=== PATIENT | female | born 1940 | race Hispanic/Latino ===

== ENCOUNTER 2021-12-26 08:50 | Inpatient (IN) | payer MEDICARE ==
[~2021-12-26] VITALS: Ht 162.6 cm; Wt 108.4 kg
[~2021-12-26 08:50] MED LIST: ASPIRIN81 M1 PO; CEPHALEXIN500 M1 PO; GABAPENTIN300 MG PO; LASIX20 MG PO; LISINOPRIL2.5 MG PO; METFORMIN HCL500 MG PO; NITROGLYCERIN0.4 MG; ULTRAM50 MG PO
[2021-12-26] MEDS ORDERED: ONDANSETRON HCL INJ 2MG/ML 2ML 2 MG/ML VIAL IV STA (09:23)
[2021-12-26] MEDS ORDERED: SODIUM CHLORIDE 0.9% 500ML 500 ML IV ONE (09:30)
[2021-12-26 09:51] LABS: BASOPHILS % 0.2 % (0.0-1.0); EOSINOPHILS % 0.1 % (0.0-6.0); HEMOGLOBIN 13.9 g/dL (12.0-16.0); LYMPHOCYTES # (AUTO) 2.1 (1.0-3.2); LYMPHOCYTES % 17.7 % (18.0-39.1); MEAN CORPUSCULAR HEMOGLOBIN 30.1 pg (28-32); MEAN CORPUSCULAR HGB CONC 32.3 g/dL (31-35); MEAN CORPUSCULAR VOLUME 93.1 fL (81-99); MONOCYTES # (AUTO) 0.5 (0.2-0.8); NEUTROPHILS # (AUTO) 9.2 (2.1-6.9); NEUTROPHILS % 77.8 % (38.7-80.0); PLATELET COUNT 214 x10e3/uL (140-360); RED BLOOD COUNT 4.62 x10e6/uL (3.6-5.1); RED CELL DISTRIBUTION WIDTH 13.3 % (11.7-14.4)
[2021-12-26 10:11] LABS: ALBUMIN 3.6 g/dL (3.5-5.0); ALBUMIN/GLOBULIN RATIO 0.9 (0.8-2.0); ANION GAP 15.3 mmol/L (8-16); CALCIUM 8.7 mg/dL (8.4-10.2); MAGNESIUM 1.8 MG/DL (1.3-2.1); POTASSIUM 4.3 mmol/L (3.5-5.1)
[2021-12-26 10:18] LABS: CREATINE KINASE MB 0.9 ng/mL (0-5.0)
[2021-12-26 10:20] LABS: INR 1.08
[2021-12-26 10:21] LABS: PARTIAL THROMBOPLASTIN TIME 28.6 seconds (23.8-35.5)
[2021-12-26 10:53] LABS: CLARITY,URINE CLEAR (CLEAR); COLOR,URINE YELLOW (YELLOW); KETONES,URINE NEGATIVE (NEGATIVE); LEUKOCYTE ESTERASE ,URINE NEGATIVE (NEGATIVE); NITRITE,URINE NEGATIVE (NEGATIVE); PROTEIN,URINE DIPSTICK NEGATIVE (NEGATIVE); URINE UROBILINOGEN 0.2 mg/dL (0.2 - 1)
[2021-12-26] MEDS ORDERED: IOPAMIDOL 370 MG/ML 100 ML INFUS..BTL INJ ONE (11:05)
[2021-12-26 11:22] LABS: BACTERIA,URINE FEW /HPF; EPITHELIAL CELLS,URINE MODERATE /LPF; RBC,URINE 0-5 /HPF (0-5)
[2021-12-26] MEDS ORDERED: DEXTROSE 50% SYRINGE 50 ML IV PRN (11:45)
[2021-12-26] MEDS ORDERED: ONDANSETRON HCL INJ 2MG/ML 2ML 2 MG/ML VIAL IV PRN (11:45)
[2021-12-26] MEDS ORDERED: Morphine 2mg Syringe 2 MG/ML SYR IV PRN (11:45)
[2021-12-26] MEDS: SODIUM CHLORIDE 0.9% 1000ML 1,000 ML IV SCH ×2 (11:59→21:36)
[2021-12-26] MEDS: METRONIDAZOLE 500MG/NS 100ML 100 ML IV SCH ×3 (11:59→23:41)
[2021-12-26 12:30] VITALS: BP 127/71
[2021-12-26] MEDS ORDERED: TIZANIDINE HCL4 MG PO (13:40)
[2021-12-26] MEDS ORDERED: CYMBALTA30 MG PO (13:40)
[2021-12-26] MEDS ORDERED: FAMOTIDINE20 MG PO (13:40)
[2021-12-26] MEDS ORDERED: SIMVASTATIN20 MG PO (13:40)
[2021-12-26] MEDS ORDERED: FLUOCINONIDE-E15 GM TOP (13:40)
[2021-12-26] MEDS ORDERED: CLOPIDOGREL75 MG PO (13:40)
[2021-12-26 13:43] VITALS: BP 127/71
[2021-12-26 16:10] VITALS: BP 102/47
[2021-12-26] MEDS: INSULIN LISPRO 100 UNIT/1 ML 3ML VIAL SQ SCH ×2 (16:30→21:00)
[2021-12-26] MEDS ORDERED: TRAMADOL HCL 50 MG TAB PO PRN (17:00)
[2021-12-26] MEDS: LEVOFLOXACIN 500 MG TAB PO SCH (17:44)
[2021-12-26] MEDS: FAMOTIDINE 20 MG TAB PO SCH (17:44)
[2021-12-26] MEDS: ENOXAPARIN SOD INJ 40 MG/0.4 ML SYR SC SCH (17:45)
[2021-12-26 18:27] LABS: CREATINE KINASE MB 0.8 ng/mL (0-5.0)
[2021-12-26 20:00] VITALS: BP 96/55
[2021-12-26 21:00] VITALS: BP 96/55
[2021-12-26] MEDS: SIMVASTATIN 20 MG TAB PO SCH (21:37)
[2021-12-27] VITALS (8 sets, daily range): BP systolic 102–123; BP diastolic 56–76
[2021-12-27 04:50] LABS: BASOPHILS % 0.4 % (0.0-1.0); EOSINOPHILS # (AUTO) 0.1 (0.0-0.4); EOSINOPHILS % 0.7 % (0.0-6.0); HEMATOCRIT 38.4 % (34.2-44.1); HEMOGLOBIN 12.3 g/dL (12.0-16.0); LYMPHOCYTES # (AUTO) 2.3 (1.0-3.2); LYMPHOCYTES % 27.7 % (18.0-39.1); MEAN CORPUSCULAR HEMOGLOBIN 30.2 pg (28-32); MEAN CORPUSCULAR VOLUME 94.3 fL (81-99); MONOCYTES # (AUTO) 0.5 (0.2-0.8); MONOCYTES % 6.5 % (4.4-11.3); NEUTROPHILS # (AUTO) 5.4 (2.1-6.9); NEUTROPHILS % 64.5 % (38.7-80.0); PLATELET COUNT 173 x10e3/uL (140-360); RED BLOOD COUNT 4.07 x10e6/uL (3.6-5.1); RED CELL DISTRIBUTION WIDTH 13.4 % (11.7-14.4)
[2021-12-27 05:09] LABS: ALBUMIN 2.9 g/dL (3.5-5.0); ALBUMIN/GLOBULIN RATIO 0.9 (0.8-2.0); CALCIUM 7.9 mg/dL (8.4-10.2); CREATININE, SERUM 0.82 mg/dL (0.57-1.11)
[2021-12-27] MEDS: METRONIDAZOLE 500MG/NS 100ML 100 ML IV SCH ×3 (05:47→18:00)
[2021-12-27 06:01] LABS: CREATINE KINASE 127 IU/L (29-168)
[2021-12-27] MEDS: INSULIN LISPRO 100 UNIT/1 ML 3ML VIAL SQ SCH ×4 (07:30→20:36)
[2021-12-27] MEDS: LISINOPRIL 2.5 MG TAB PO SCH (08:59)
[2021-12-27] MEDS: FAMOTIDINE 20 MG TAB PO SCH ×2 (08:59→16:46)
[2021-12-27] MEDS ORDERED: DULOXETINE HCL 30 MG DELAYED RELEASE PO SCH (09:00)
[2021-12-27] MEDS: SODIUM CHLORIDE 0.9% 1000ML 1,000 ML IV SCH ×2 (10:30→17:45)
[2021-12-27] MEDS ORDERED: PHE/SHARK LIVER OIL/COCOA BUT 24 EA SUPP RC PRN (12:15)
[2021-12-27] MEDS ORDERED: SIMETHICONE 80 MG CHEW PO PRN (12:15)
[2021-12-27] MEDS: ENOXAPARIN SOD INJ 40 MG/0.4 ML SYR SC SCH (16:46)
[2021-12-27] MEDS: LEVOFLOXACIN 500 MG TAB PO SCH (16:46)
[2021-12-27] MEDS: SIMVASTATIN 20 MG TAB PO SCH (20:36)
[2021-12-28 00:12] VITALS: BP 111/71
[2021-12-28] MEDS: METRONIDAZOLE 500MG/NS 100ML 100 ML IV SCH ×2 (00:28→05:44)
[2021-12-28] MEDS: SODIUM CHLORIDE 0.9% 1000ML 1,000 ML IV SCH (03:49)
[2021-12-28 04:00] VITALS: BP 102/52
[2021-12-28] MEDS: INSULIN LISPRO 100 UNIT/1 ML 3ML VIAL SQ SCH (07:30)
[2021-12-28 08:25] VITALS: BP 110/70
[2021-12-28 09:00] VITALS: BP 110/70
[2021-12-28] MEDS: LISINOPRIL 2.5 MG TAB PO SCH (09:23)
[2021-12-28] MEDS: FAMOTIDINE 20 MG TAB PO SCH (09:23)
[2021-12-28] MEDS ORDERED: LEVOFLOXACIN500 MG PO (11:00)
[2021-12-28] MEDS ORDERED: FLAGYL375 MG PO (11:02)
[2021-12-28 11:58] VITALS: BP 146/80
[2021-12-28] MEDS ORDERED: DULOXETINE HCL 30 MG DELAYED RELEASE PO SCH (21:00)
== END 2021-12-28 11:54 | disposition home or self-care (01) | DRG 312 ==
LOC: ER 09:05 → ERHOLD 11:46 → MED/SURG3 12:30
PROVIDERS: ADMIT Internal Medicine; ATTEND Internal Medicine
DX: R55 Syncope and collapse (principal); Z68.41 Body mass index [BMI] 40.0-44.9, adult; K52.9 Noninfective gastroenteritis and colitis, unspecified; E11.9 Type 2 diabetes mellitus without complications; E66.01 Morbid (severe) obesity due to excess calories; E78.00 Pure hypercholesterolemia, unspecified; K57.90 Diverticulosis of intestine, part unspecified, without perforation or abscess without bleeding; Z20.822 Contact with and (suspected) exposure to COVID-19; Z79.4 Long term (current) use of insulin
CPT/HCPCS: 36415; 70450; 71045; 72125; 74177; 80053; 81001; 82550; 82553; 82948; 83036; 83690; 83735; 83880; 84443; 84484; 85025; 85610; 85730; 87086; 93005; 93306; 93880; 96361; 99284; J0696; J1650; J2270; J2405; J7030; J7040; Q9967